=== PATIENT | male | born 1945 | race Caucasian/White ===

== ENCOUNTER 2020-10-01 21:29 | Emergency (ER) | payer MEDICARE, OTHER ==
[~2020-10-01] VITALS: Ht 167.6 cm; Wt 81.7 kg
[~2020-10-01 21:29] MED LIST: ACETAMINOPHEN-1 EAC1 PO; ALEVE220 M1; BACTRIM DS TAB1 EACH PO; BACTROBAN22 GM TP; BLOOD PRESSURE MED; CIPROFLOXACIN500 M3; FLOMAX PO; HYDROCODON-ACE1 EAC7 PO; KEFLEX500 M1 PO; LORTAB 5 MG/5001 TA1; NORCO 5-325 TA1 EACH PO; NORVASC5 MG; OMEGA-31000 MG; PERCOCET 5-3251 EACH PO
[2020-10-01] MEDS ORDERED: GABAPENTIN100 MG PO (21:39)
[2020-10-01] MEDS ORDERED: ROSUVASTATIN CAL5 MG PO (21:39)
[2020-10-01] MEDS ORDERED: FENOFIBRATE150 MG PO (21:39)
[2020-10-01] MEDS ORDERED: NORVASC5 MG PO (21:40)
[2020-10-01] MEDS ORDERED: PROTONIX40 M2 PO (21:40)
[2020-10-01] MEDS ORDERED: METANX CAPSULE1 EACH PO (21:41)
[2020-10-01] MEDS ORDERED: FISH OIL 1,0001 EAC9 PO (21:41)
[2020-10-01] MEDS ORDERED: ASPIRIN EC81 M1 PO (21:41)
[2020-10-01] MEDS ORDERED: DULOXETINE HCL30 MG PO (21:41)
[2020-10-01] MEDS ORDERED: [UNRECOGNIZED DRUG - OTHER] PO (21:42)
[2020-10-02 01:28] VITALS: BP 150/81
== END 2020-10-02 01:28 | disposition home or self-care (01) ==
LOC: M.ERS 21:29
DX: S62.647A Nondisplaced fracture of proximal phalanx of left little finger, initial encounter for closed fracture (principal); I10 Essential (primary) hypertension; Z87.442 Personal history of urinary calculi; Z90.89 Acquired absence of other organs; Z88.8 Allergy status to other drugs, medicaments and biological substances; W23.0XXA Caught, crushed, jammed, or pinched between moving objects, initial encounter; Y93.89 Activity, other specified; Y92.89 Other specified places as the place of occurrence of the external cause; Y99.8 Other external cause status

== ENCOUNTER → 2020-10-28 | Outpatient (CLI) | payer MEDICARE, OTHER ==
[~2020-10-28] MED LIST changes: +ASPIRIN EC81 M1 PO; +DULOXETINE HCL30 MG PO; +FENOFIBRATE150 MG PO; +FISH OIL 1,0001 EAC9 PO; +GABAPENTIN100 MG PO; +METANX CAPSULE1 EACH PO; +NORVASC5 MG PO; +PROTONIX40 M2 PO; +ROSUVASTATIN CAL5 MG PO; +[UNRECOGNIZED DRUG - OTHER] PO
== END ==
LOC: M.RAD 10:00
PROVIDERS: ATTEND Orthopaedic Surgery
DX: S62.646D Nondisplaced fracture of proximal phalanx of right little finger, subsequent encounter for fracture with routine healing (principal); S52.091D Other fracture of upper end of right ulna, subsequent encounter for closed fracture with routine healing; M85.841 Other specified disorders of bone density and structure, right hand; X58.XXXD Exposure to other specified factors, subsequent encounter